=== PATIENT | female | born 2005 | race Caucasian/White ===

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

== ENCOUNTER 2025-02-02 10:06 | Emergency (ER) | payer OTHER, SELFPAY ==
[2025-02-02] VITALS (18 sets, daily range): BP systolic 119–125; BP diastolic 68–70; PULSE 79–107; RESP 16–18; TEMP 36.9; O2SAT 92–100; BMI 36.8
--- OUTSIDE RECORDS SUMMARY | 2025-02-02 10:09 | XMS_ITS | Clinical Summary ---
Author Organization [facility] Address [address] [place] [id number] Care Team Providers Care Dope And Fabric Worker Name Role Phone Teagan Ocampo MD Primary Care Provider Allergies Active Allergy Reactions Criticality Noted Date Comments Amoxicillin Rash 11/02/2007 Guaifenesin Hives,Edema 12/14/2016 Medications pediatric multivit comb no.101 chew 2 gummies PO daily. 0 6 Active albuterol (PROVENTIL) 0.083 % neb solutionIndica tions:Bronchit is Inhale 3 mL via a nebulizer every 4 hours if needed. 1 box 0 6 Active LORazepam (ATIVAN) 1 mg tablet Take 1 mg by mouth once daily if needed. 0 7 Active acetaminophen (TYLENOL EXTRA STRENGTH) 500 mg tablet Take 500 mg by mouth every 6 hours if needed (as needed and prior to remicade infusion). Max acetaminophen dose: 4000mg in 24 hrs. Active levocetirizine (XYZAL) 5 mg tab tablet Take 5 mg by mouth once daily if needed for Rhinitis. Active Active Problems Problem Noted Date Diagnosed Date Crohn's disease with complication 07/01/2017 Viral warts 06/16/2017 Crohn disease 01/18/2017 Iron deficiency anemia, unspecified 12/17/2016 Overview (12/22/2016): Hgb 7.8 referred to pediatric GI- having upper and lower endoscopies on 01/04/17 Vaccination not carried out because of patient kiesha morse 03/13/2007 Immunizations Immunization Administration Dates Next Due DTaP 2005,2005,2005 HIB-HepB (Comvax) 2005,2005 Inactivated Polio Vaccine 2005,2005, 2005 Pneumococcal conj 7-Valent (Prevnar 7) 6,2005,2005 Family History Medical History Relation Name Comments Good Health Father Diabetes Maternal Grandfather Type 1 Lupus Maternal Grandfather Lupus A nticoagulant Cancer-breast Maternal Grandmother Diabetes Maternal Grandmother Type 2 Rheum arthritis Maternal Grandmother Asthma Mother Thyroid Disease Paternal Grandmother Allergies Sister Valerie Asthma Sister Valerie Urticaria Sister Valerie from the cold Relation Name Status Comments Father Alive Maternal Grandfather Alive Maternal Grandmother Alive Mother Alive Paternal Grandfather Alive Paternal Grandmother Alive Sister Valerie Alive Social History Tobacco Use Types Packs/Day Years Used Date Smoking Tobacco: Never Smokeless Tobacco: Never Alcohol Use Standard Drinks/Week Comments Not Asked 0 (1 standard drink = 0.6 oz pur e alcohol) Comments No Sex and Gender Information Value Date Recorded Sex Assigned at Not on file 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 Gender Identity Not on file Sexual Orientation Not on file Occupation Industry Job Start Date Job End Date Student Not on file Not on file Not on file Obstetrics History Last Filed Vital Signs Vital Sign Reading Time Taken Comments Blood Pressure 122/59 07/29/2023 12:54 PM CDT Pulse 84 07/29/2023 12:54 PM CDT Temperature 36.8 C (98.3 F) 07/01/2023 9:35 AM CDT Respiratory Rate 18 07/29/2023 12:54 PM CDT Oxygen Saturation 98% 07/29/2023 12:54 PM CDT Inhaled Oxygen Concentration - - Weight 89.1 kg (196 lb 8 oz) 07/01/2023 9:35 AM CDT Height 153 cm (5' 0.24) 03/14/2020 9:45 AM CDT Head Circumference 47.5 cm 03/13/2007 9:00 AM CDT Head Circumference Percentile 69.20% 03/13/2007 9:00 AM CDT Growth Chart: WHO (Girls, 0- 2 years) Body Mass Index - - Plan of Treatment Health Maintenance Due Date Last Done Comments Well Child Check for age 3-20 04/30/2008 03/13/2007 Depression screening for age 12+ 2017 HIV for age 15-65 2020 BMI (ht and wt on same day) for age 18+ 2023 Hepatitis C screening for ag e 18-79 2023 COVID-19 vaccine series (2023- season) 2024 07/22/2021, 07/01/2021 Pneumococcal series for age 6-49 Aged Out 2005, 2005, 2005 No longer eligible based on patient's age to complete this topic Insurance [facility] Care Teams Dope And Fabric Worker Relationship Specialty Start Date End Date Teagan Ocampo MD [address] [facility] [place] [address] PCP - General Pediatric 12/02/21
--- OUTSIDE RECORDS SUMMARY | 2025-02-02 10:50 | XMS_ITS | Clinical Summary ---
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
--- NOTE | 2025-02-02 10:52 | ED.GENADULT ---
HPI - General Adult General Date Seen: 02/02/25 Chief complaint: Abdominal Pain Stated complaint: sharp pelvic pain Time Seen by Provider: 02/02/25 10:22 Source: patient Mode of arrival: ambulatory Limitations: no limitations History of Present Illness HPI narrative: Patient is an 18-year-old female with left pelvic/left lower quadrant abdominal pain. She states the pain seemed to start last night around 21:30. States initially was dull but will have episodes of acute sharp pain. States right now the pain seems to be tolerated nature. Does get worse with movement. She states the pain started suddenly. Denies having pain like this before. It has been told previously she has a 5 cm left adnexal cyst. Has never been diagnosed with ovarian torsion before. Denies nausea or vomiting. Has not noticed any vaginal bleeding or discharge. Denies any chance of . Does have a history of Crohn's disease and usually that pain is more in her mid to upper abdomen. She has never had Crohn's disease pain here before. Her Crohn's disease mostly affects her terminal ileum. Denies any other concerns. Related Data Home Medications ?Medication ?Instructions ?Recorded ?Confirmed acetaminophen 325 mg capsule 325 mg PO Q6H PRN 09/22/23 01/10/25 (Tylenol) cetirizine 10 mg capsule (All Day 10 mg PO DAILY PRN 09/22/23 01/10/25 Allergy (cetirizine)) diphenhydramine HCl 25 mg capsule 25 mg PO Q8H PRN 09/22/23 01/10/25 (Benadryl) mometasone 0.1 % topical cream 1 applic topical DAILY 09/22/23 01/10/25 multivit with min-folic acid 1 tab PO DAILY 09/22/23 01/10/25 triamcinolone acetonide 0.025 % 1 applic topical DAILY 09/22/23 01/10/25 lotion Allergies Allergy/AdvReac Type Severity Reaction Status Date / Time amoxicillin Allergy Unknown Verified 02/02/25 13:50 guaifenesin (From Robitussin) Allergy Unknown Verified 02/02/25 13:50 Review of Systems Status of ROS: Reports: 10 or more systems reviewed and unremarkable except as noted in History and below Exam Narrative: Exam Narrative: Const: Well-nourished, Well-developed, in mild distress Eyes: PERRL, no conjunctival injection, and symmetrical lids HENT: Atraumatic external nose and ears. Moist mucous membranes. Neck: Symmetric, trachea midline, No thyromegaly. CVS: RRR, No murmurs or gallops. Peripheral pulses 2+ and equal in all extremities RESP: Unlabored respiratory effort. Clear to auscultation bilaterally. GI: Mild pelvic given left lower quadrant tenderness, Nondistended, No rebound or guarding. MSK:Extremities w/o deformity, Normal Active ROM Skin: Warm, Dry. No rashes or lesions. Neuro: Normal Muscle tone, No focal neurological deficits. Psych: Awake, Alert, & Oriented x3. Appropriate mood and affect. Const: Vital Signs, click to edit/add: Vital Signs - 24 hr 02/02/25 10:19 02/02/25 11:23 02/02/25 11:30 Temperature 98.4 F Pulse Rate 82 91 Pulse Rate [Pulse Oximeter] 80 Respiratory Rate 18 18 Blood Pressure Blood Pressure [Ri ght Upper Arm] 125/68 Pulse Oximetry [address] thod Room Air 02/02/25 12:07 02/02/25 12:15 02/02/25 12:30 Temperature Pulse Rate 81 79 101 H Pulse Rate [Pulse Oximeter] Respiratory Rate 16 Blood Pressure Blood Pressure [Ri ght Upper Arm] Pulse Oximetry [address] thod 02/02/25 12:49 02/02/25 13:06 02/02/25 13:15 Temperature Pulse Rate 88 90 90 Pulse Rate [Pulse Oximeter] Respiratory Rate Blood Pressure Blood Pressure [Ri ght Upper Arm] Pulse Oximetry [address] thod 02/02/25 13:30 02/02/25 13:45 02/02/25 14:00 Temperature Pulse Rate 83 86 93 Pulse Rate [Pulse Oximeter] Respiratory Rate Blood Pressure Blood Pressure [Ri ght Upper Arm] Pulse Oximetry 95 98 96 Oxygen Delivery Me thod 02/02/25 14:15 02/02/25 14:30 02/02/25 14:45 Temperature Pulse Rate 93 107 H 98 Pulse Rate [Pulse Oximeter] Respiratory Rate Blood Pressure Blood Pressure [Ri ght Upper Arm] Pulse Oximetry 96 [address] thod 02/02/25 15:00 02/02/25 15:01 02/02/25 15:15 Temperature Pulse Rate 98 100 Pulse Rate [Pulse Oximeter] Respiratory Rate Blood Pressure 119/70 Blood Pressure [Ri ght Upper Arm] Pulse Oximetry 98 97 99 Oxygen Delivery Me thod Course Vital Signs Vital signs: Initial Vital Signs Temperature 98.4 F 02/02/25 10:19 Temperature Source Temporal Artery Scan 02/02/25 10:19 Pulse Rate 80 02/02/25 10:19 Respiratory Rate 18 02/02/25 10:19 Blood Pressure 125/68 02/02/25 10:19 Blood Pressure Mean 87 02/02/25 10:19 Pulse Oximetry 100 02/02/25 10:19 Oxygen Delivery Method Room Air 02/02/25 10:19 Vital Signs Temperature 98.4 F 02/02/25 10:19 Pulse Rate 80 02/02/25 10:19 Respiratory Rate 18 02/02/25 10:19 Blood Pressure 125/68 02/02/25 10:19 Pulse Oximetry 100 02/02/25 10:19 Oxygen Delivery Method Room Air 02/02/25 10:19 Temperature 98.4 F 02/02/25 10:19 Pulse Rate 100 02/02/25 15:15 Respiratory Rate 16 02/02/25 12:30 Blood Pressure 119/70 02/02/25 15:00 Pulse Oximetry 99 02/02/25 15:15 Oxygen Delivery Method Room Air 02/02/25 10:19 Medications Administered Medications: Discontinued Medications Generic Name Dose Route Start Last Admin Trade Name Freq PRN Reason Stop Dose Admin Morphine Sulfate 4 mg 02/02/25 10:36 02/02/25 11:12 Morphine 4 Mg/Ml Inj IVP 02/02/25 10:37 4 mg ONCE ONE Administration Morphine Sulfate 4 mg 02/02/25 15:42 02/02/25 15:54 Morphine 4 Mg/Ml Inj IVP 02/02/25 15:43 4 mg ONCE ONE Administration Medical Decision Making [facility] Narrative Medical decision making narrative: Patient is an 18-year-old female presenting for abdominal and pelvic pain. Based on her history and description I am concerned about ovarian torsion. There is a possibility she is having intermittent torsion. There is also some concern for Crohn's disease but seems less likely at this time. Due to there is possibility of surgery will order CBC, BMP, test. Will also order morphine for pain. Pelvic ultrasound ordered. Will hold off on any further imaging at this time. Lab work returned with a white count of 18.99. She does not take any steroids other than a topical steroid she used yesterday for her psoriasis. Ultrasound was done showing a large right ovarian cyst and no issue seen on the left. I informed her of this finding and after evaluation she does note she has seemingly more pain on the right side now. With his elevated white count and her history I do believe it is important do a CT scan. CT scan reviewed by myself and the radiologist shows significant terminal ileitis compatible with an acute Crohn's flare along with signs concerning for acute appendicitis. This also multiple small collections in the right lower quadrant that contains air and fluid as concerning for bowel perforation and/or perforated appendicitis with periappendiceal abscesses. With this extensive issues I did speak to our on-call surgeon, Dr. Lorenzo, she states likely treatment would be with antibiotics and possibly steroids to treat everything in the patient may eventually need IR drainage. She did speak to our on-call hospitalist who does not feel comfortable keeping the patient in the hospital with all these issues so we will work on transferring the patient. She does see a GI specialist through the [facility] which is through the [facility] and would like transfer to [address] [facility] accepted her to [place] emergency department direct transfer. Patient started on meropenem. She does have an allergy to amoxicillin when she was young. She states he was a rash. I do believe she is safe to get the meropenem. She will be transferred at this time. Lab Data Labs: Lab Results 02/02/25 02/02/25 Range/Units 11:00 12:43 WBC 18.99 H (4.50-11.00) K/uL RBC 5.15 (4.00-5.20) m/uL Hgb 11.7 L (12.0-16.0) gm/dL Hct 36.9 (33.0-51.0) % MCV 72 L (80-100) fL MCH 23 L (26-34) pg MCHC 32 (32-36) gm/dL RDW Coeff of Alexa 14.4 (11.5-15.5) % Plt Count 492 H (140-440) K/uL Neut % (Auto) 69.7 (42.0-72.0) % Lymph % (Auto) 17.3 L (20-44) % [place] % (Auto) 10.8 (0.0-11.0) % Eos % (Auto) 1.8 (0.0-7.0) % Baso % (Auto) 0.2 (0.0-3.0) % Neut # (Auto) 13.20 H (1.7-7.0) K/uL Lymph # (Auto) 3.30 H (0.90-2.90) K/uL [place] # (Auto) 2.10 H (0.00-0.90) K/UL Eos # (Auto) 0.30 (0.00-0.50) K/uL Baso # (Auto) 0.00 (0.00-0.30) K/uL Abs Immat Gran (auto) 0.00 (0.00-0.30) K/uL Imm/Tot Granulo (auto) 0.2 % Sodium 138 (135-149) mmol/L Potassium 3.8 (3.6-5.1) mmol/L Chloride 102 (96-114) mmol/L Carbon Dioxide 27 (20-32) mmol/L Anion Gap 9 (7-15) mEq/L BUN 6 (5-24) mg/dL Creatinine 0.6 (0.6-1.2) mg/dL Estimated Creat Clear 113.80 Estimated GFR 133 ml/min Glucose 92 (60-115) mg/dL Calcium 8.7 (8.7-10.8) mg/dL HCG, Qual Negative (Negative) Urine Color Yellow (Yellow) Urine Appearance Clear (Clear) Urine pH 7.0 (5.0-8.5) Ur Specific [place] 1.015 (1.000-1.030) Urine Protein Negative (Negative) Urine Glucose (UA) Negative (Negative) Urine Ketones Negative (Negative) Urine Blood Negative (Negative) Urine Nitrite Negative (Negative) Urine Bilirubin Negative (Negative) Urine Urobilinogen 0.2 (0.2-1.0) Ur Leukocyte Esterase Negative (Negative) Urine RBC 0-2 (0-2) Urine WBC 0-2 (0-5) Ur Squamous Epith Cells Few (None-Few) Urine Bacteria None (None) Imaging Data CT scan abdomen and pelvis: Attestation: I have reviewed the pertinent imaging results. Radiologist's impression: 1. Significant terminal ileitis, compatible with acute Crohn`s flare. 2. Additional tubular blind ending loop of bowel extending from the cecum shows significant wall thickening and adjacent inflammation, worrisome for acute appendicitis. Multiple adjacent small collections in the right lower quadrant containing air and fluid, concerning for bowel perforation/perforated appendicitis, with periappendiceal abscesses. 3. Dominant follicle/cyst in the right ovary measuring up to 6.2 cm, better assessed on prior ultrasound. 4. 0.8 cm pulmonary nodule in the right lower lobe. Recommend comparison with prior studies if available to assess for interval change, otherwise recommend follow-up CT chest in 6 months. Please note that all CT scans at this facility use dose modulation, iterative reconstruction, and/or weight-based dosing when appropriate to reduce radiation dose to as low as reasonably achievable. Dictated by Christi Nunez MD @ 02/02/2025 2:24:15 PM ----- ADDENDUM ----- Case discussed with Dr. Navarrete at 14:28 on 02/02/2025. Dictated by Christi Nunez MD @ Feb 02 2025 3:04PM Discharge Plan Discharge Clinical Impression: Crohn's disease Qualifiers: Gastrointestinal tract location: unspecified location Digestive disease complication type: unspecified complication Qualified Code(s): K50.919 - Crohn's disease, unspecified, with unspecified complications Acute appendicitis Qualifiers: Acute appendicitis type: with localized peritonitis Appendicitis gangrene presence: unspecified whether gangrene present Appendicitis perforation presence: unspecified whether perforation present Appendicitis abscess presence: with abscess Qualified Code(s): K35.33 - Acute appendicitis with perforation, localized peritonitis, and gangrene, with abscess Patient Disposition: Xfer [place] Condition: Stable Prescriptions: No Action multivit with min-folic acid [Women's Multivitamin Gummies] 1 tab PO DAILY acetaminophen [Tylenol] 325 mg capsule 325 mg PO Q6H PRN mometasone 0.1 % cream 1 applic topical DAILY triamcinolone acetonide 0.025 % lotion 1 applic topical DAILY diphenhydramine HCl [Benadryl] 25 mg capsule 25 mg PO Q8H PRN All Day Allergy (cetirizine) 10 mg capsule 10 mg PO DAILY PRN Follow Up/Referrals: Awilda Dick APRN [Primary Care Provider] - Stand Alone [facility] Inst[facility]
[2025-02-02] MEDS: MORPHINE 4 MG/ML INJ IVP ×2 (11:12→15:54)
[2025-02-02 11:18] LABS: Basophils Percent Auto 0.2 % (0.0-3.0); Eosinophils Percent Auto 1.8 % (0.0-7.0); Hematocrit 36.9 % (33.0-51.0); Hemoglobin* 11.7 gm/dL (12.0-16.0); Immature Granulocytes Pct Auto 0.2 %; Lymphocytes Percent Auto 17.3 % (20-44); Mean Corpuscular HGB Conc 32 gm/dL (32-36); Mean Corpuscular Hemoglobin 23 pg (26-34); Mean Corpuscular Volume 72 fL (80-100); Monocytes Percent Auto 10.8 % (0.0-11.0); Neutrophils Percent Auto 69.7 % (42.0-72.0); Platelet Count* 492 K/uL (140-440); RDW Coefficient of Variation % 14.4 % (11.5-15.5); Red Blood Count 5.15 m/uL (4.00-5.20); White Blood Count* 18.99 K/uL (4.50-11.00)
[2025-02-02 11:24] LABS: Slide Review Reflex No
[2025-02-02 11:32] LABS: Chloride* 102 mmol/L (96-114); Potassium* 3.8 mmol/L (3.6-5.1); Sodium* 138 mmol/L (135-149)
[2025-02-02 11:35] LABS: Anion Gap 9 mEq/L (7-15); Blood Urea Nitrogen* 6 mg/dL (5-24); Calcium* 8.7 mg/dL (8.7-10.8); Carbon Dioxide* 27 mmol/L (20-32); Creatinine* 0.6 mg/dL (0.6-1.2); Estimated Glomerular Filt Rate 133 ml/min; Glucose* 92 mg/dL (60-115)
[2025-02-02 12:01] LABS: HCG Qualitative Serum* Negative (Negative)
[2025-02-02 12:55] LABS: Appearance Urine Clear (Clear); Bilirubin Urine Negative (Negative); Blood Urine Negative (Negative); Color Urine Yellow (Yellow); Glucose Urine Negative (Negative); Ketones Urine Negative (Negative); Leukocyte Esterase Urine Negative (Negative); Nitrite Urine Negative (Negative); Protein Urine Negative (Negative); Specific Gravity Urine 1.015 (1.000-1.030); Urobilinogen Urine 0.2 (0.2-1.0)
[2025-02-02 13:05] LABS: RBC Urine 0-2 (0-2); Squamous Epithelial Cell Urine Few (None-Few); WBC Urine 0-2 (0-5)
[2025-02-02] MEDS: 0.9 % SODIUM CHLORIDE 1000 ml 1,000 ML IV (16:16)
[2025-02-02] MEDS: MEROPENEM 1 GM in 0.9 % SODIUM CHLORIDE Mini-bag 100 ML IVPB (16:29)
== END 2025-02-02 17:28 | disposition short-term general hospital (02) ==
PROVIDERS: Emergency Provider Student in an Organized Health Care Education/Training Program; PCP Clinical Nurse Specialist
DX: K50.919 Crohn's disease, unspecified, with unspecified complications (principal); K35.33 Acute appendicitis with perforation, localized peritonitis, and gangrene, with abscess
CPT/HCPCS: 36415; 74177; 76856; 80048; 81001; 84703; 85025; 93976; 94761; 96365; 96375; 96376; 99284; 99285; J2185; J2270; J7030; Q9967

== ENCOUNTER 2025-02-14 11:00 | Outpatient (RCR) | payer OTHER, SELFPAY ==
[2024-09-20 11:21] VITALS: BP 120/81; PULSE 74; RESP 16; TEMP 36.8; O2SAT 98
[2024-09-20] MEDS: SODIUM CHLORIDE 0.9 % (FLUSH) 10 ML SYRINGE IVF (12:00)
[2024-09-20 14:19] LABS: Basophils Percent Auto 0.3 % (0.0-3.0); Eosinophils Percent Auto 3.4 % (0.0-7.0); Hematocrit 37.7 % (33.0-51.0); Immature Granulocytes Pct Auto 0.1 %; Lymphocytes Percent Auto 31.7 % (20-44); Mean Corpuscular HGB Conc 32 gm/dL (32-36); Mean Corpuscular Hemoglobin 24 pg (26-34); Mean Corpuscular Volume 75 fL (80-100); Monocytes Percent Auto 8.6 % (0.0-11.0); Neutrophils Percent Auto 55.9 % (42.0-72.0); Platelet Count* 424 K/uL (140-440); RDW Coefficient of Variation % 14.5 % (11.5-15.5); Red Blood Count 5.04 m/uL (4.00-5.20); White Blood Count* 11.11 K/uL (4.50-11.00)
[2024-09-20 14:22] LABS: Slide Review Reflex No
[2024-09-20 14:47] LABS: Albumin* 4.1 g/dL (3.3-5.0); Chloride* 104 mmol/L (96-114); Sodium* 137 mmol/L (135-149)
[2024-09-20 14:48] LABS: Potassium* 3.5 mmol/L (3.6-5.1)
[2024-09-20 14:50] LABS: Alanine Aminotransferase* 21 U/L (4-35); Alkaline Phosphatase* 70 U/L (40-150); Anion Gap 8 mEq/L (7-15); Aspartate Amino Transferase* 29 U/L (12-35); Bilirubin Total* 0.3 mg/dL (0.1-1.5); Blood Urea Nitrogen* 6 mg/dL (5-24); Carbon Dioxide* 25 mmol/L (20-32); Creatinine* 0.6 mg/dL (0.6-1.2); Estimated Glomerular Filt Rate 133 ml/min; Glucose* 90 mg/dL (60-115); Total Protein* 7.8 g/dL (6.0-8.3)
[2024-09-20 14:51] LABS: Calcium* 8.9 mg/dL (8.7-10.8)
[2024-10-18 11:04] VITALS: BP 117/71; PULSE 61; RESP 16; TEMP 36.3; O2SAT 96
[2024-10-18 11:21] LABS: Basophils Absolute Auto 0.04 K/uL (0.00-0.30); Basophils Percent Auto 0.5 % (0.0-3.0); Eosinophils Absolute Auto 0.23 K/uL (0.00-0.50); Eosinophils Percent Auto 2.6 % (0.0-7.0); Hematocrit 39.3 % (33.0-51.0); Hemoglobin* 12.4 gm/dL (12.0-16.0); Immature Granulocytes Abs Auto 0.01 K/uL (0.00-0.30); Immature Granulocytes Pct Auto 0.1 %; Lymphocytes Absolute Auto 3.42 K/uL (0.90-2.90); Lymphocytes Percent Auto 39.3 % (20-44); Mean Corpuscular HGB Conc 32 gm/dL (32-36); Mean Corpuscular Hemoglobin 23 pg (26-34); Mean Corpuscular Volume 73 fL (80-100); Monocytes Percent Auto 7.8 % (0.0-11.0); Neutrophils Absolute Auto 4.33 K/uL (1.7-7.0); Neutrophils Percent Auto 49.7 % (42.0-72.0); Platelet Count* 407 K/uL (140-440); RDW Coefficient of Variation % 14.4 % (11.5-15.5); Red Blood Count 5.41 m/uL (4.00-5.20); White Blood Count* 8.71 K/uL (4.50-11.00)
[2024-10-18 11:26] LABS: Slide Review Reflex No
[2024-10-18 11:36] LABS: Albumin* 4.1 g/dL (3.3-5.0); Chloride* 105 mmol/L (96-114)
[2024-10-18 11:37] LABS: Sodium* 135 mmol/L (135-149)
[2024-10-18 11:39] LABS: Alkaline Phosphatase* 81 U/L (40-150); Anion Gap 4 mEq/L (7-15); Aspartate Amino Transferase* 27 U/L (12-35); Bilirubin Total* 0.2 mg/dL (0.1-1.5); Blood Urea Nitrogen* 8 mg/dL (5-24); Carbon Dioxide* 26 mmol/L (20-32); Creatinine* 0.5 mg/dL (0.6-1.2); Estimated Glomerular Filt Rate 138 ml/min; Total Protein* 7.8 g/dL (6.0-8.3)
[2024-10-18 11:40] LABS: Alanine Aminotransferase* 23 U/L (4-35); Glucose* 95 mg/dL (60-115)
[2024-10-18] MEDS: SODIUM CHLORIDE 0.9 % (FLUSH) 10 ML SYRINGE IVF (14:07)
[2024-11-15 11:35] VITALS: BP 121/75; PULSE 71; RESP 16; TEMP 36.8; O2SAT 98
[2024-11-15 12:08] LABS: Basophils Absolute Auto 0.03 K/uL (0.00-0.30); Basophils Percent Auto 0.3 % (0.0-3.0); Eosinophils Absolute Auto 0.45 K/uL (0.00-0.50); Eosinophils Percent Auto 5.2 % (0.0-7.0); Hematocrit 37.9 % (33.0-51.0); Lymphocytes Absolute Auto 3.09 K/uL (0.90-2.90); Lymphocytes Percent Auto 35.4 % (20-44); Mean Corpuscular HGB Conc 32 gm/dL (32-36); Mean Corpuscular Hemoglobin 23 pg (26-34); Mean Corpuscular Volume 73 fL (80-100); Monocytes Percent Auto 8.6 % (0.0-11.0); Neutrophils Absolute Auto 4.41 K/uL (1.7-7.0); Neutrophils Percent Auto 50.5 % (42.0-72.0); Platelet Count* 400 K/uL (140-440); RDW Coefficient of Variation % 14.8 % (11.5-15.5); White Blood Count* 8.73 K/uL (4.50-11.00)
[2024-11-15 12:11] LABS: Slide Review Reflex No
[2024-11-15] MEDS: SODIUM CHLORIDE 0.9 % (FLUSH) 10 ML SYRINGE IVF (12:16)
[2024-11-15] MEDS: CETIRIZINE HCL 10 MG TABLET PO (12:16)
[2024-11-15 12:28] LABS: Albumin* 3.8 g/dL (3.3-5.0); Chloride* 107 mmol/L (96-114)
[2024-11-15 12:29] LABS: Potassium* 3.8 mmol/L (3.6-5.1); Sodium* 139 mmol/L (135-149)
[2024-11-15 12:31] LABS: Anion Gap 8 mEq/L (7-15); Aspartate Amino Transferase* 21 U/L (12-35); Bilirubin Total* 0.2 mg/dL (0.1-1.5); Carbon Dioxide* 24 mmol/L (20-32); Creatinine* 0.5 mg/dL (0.6-1.2); Estimated Glomerular Filt Rate 138 ml/min
[2024-11-15 12:32] LABS: Alanine Aminotransferase* 19 U/L (4-35); Alkaline Phosphatase* 69 U/L (40-150); Blood Urea Nitrogen* 8 mg/dL (5-24); Calcium* 8.9 mg/dL (8.7-10.8); Glucose* 116 mg/dL (60-115); Total Protein* 7.2 g/dL (6.0-8.3)
--- NOTE | 2024-11-15 13:32 | ONC.NURNOTE ---
Faxed lab orders to Dr. Maria De Jesus Smyth. Quantiferon pending. Requested them to send us their clinic notes from tomorrows appointment and to revise current pre-med orders.
[2024-11-17 13:54] LABS: QuantiFERON Mitogen minus NIL 9.78 IU/mL; QuantiFERON NIL 0.22 IU/mL; Quantiferon Plus TB1 minus NIL 0.06 IU/mL (<=0.34); Quantiferon Plus TB2 minus NIL 0.07 IU/mL (<=0.34); Quantiferon TB Gold Plus Negative (Negative)
[2024-12-13 11:41] VITALS: BP 103/68; PULSE 69; RESP 16; TEMP 36.4; O2SAT 97
[2024-12-13 12:00] LABS: Basophils Absolute Auto 0.05 K/uL (0.00-0.30); Basophils Percent Auto 0.5 % (0.0-3.0); Eosinophils Absolute Auto 0.29 K/uL (0.00-0.50); Eosinophils Percent Auto 2.8 % (0.0-7.0); Hematocrit 38.2 % (33.0-51.0); Hemoglobin* 12.2 gm/dL (12.0-16.0); Immature Granulocytes Abs Auto 0.01 K/uL (0.00-0.30); Immature Granulocytes Pct Auto 0.1 %; Lymphocytes Absolute Auto 3.28 K/uL (0.90-2.90); Lymphocytes Percent Auto 32.2 % (20-44); Mean Corpuscular HGB Conc 32 gm/dL (32-36); Mean Corpuscular Hemoglobin 23 pg (26-34); Mean Corpuscular Volume 73 fL (80-100); Monocytes Percent Auto 7.6 % (0.0-11.0); Neutrophils Absolute Auto 5.79 K/uL (1.7-7.0); Neutrophils Percent Auto 56.8 % (42.0-72.0); Platelet Count* 429 K/uL (140-440); RDW Coefficient of Variation % 15.3 % (11.5-15.5); Red Blood Count 5.24 m/uL (4.00-5.20)
[2024-12-13 12:07] LABS: Slide Review Reflex No
[2024-12-13 12:13] LABS: Albumin* 3.9 g/dL (3.3-5.0); Chloride* 105 mmol/L (96-114); Sodium* 138 mmol/L (135-149)
[2024-12-13 12:14] LABS: Potassium* 3.8 mmol/L (3.6-5.1)
[2024-12-13 12:16] LABS: Alanine Aminotransferase* 20 U/L (4-35); Alkaline Phosphatase* 75 U/L (40-150); Anion Gap 6 mEq/L (7-15); Aspartate Amino Transferase* 22 U/L (12-35); Bilirubin Total* 0.3 mg/dL (0.1-1.5); Blood Urea Nitrogen* 8 mg/dL (5-24); Carbon Dioxide* 27 mmol/L (20-32); Creatinine* 0.6 mg/dL (0.6-1.2); Estimated Glomerular Filt Rate 133 ml/min; Glucose* 92 mg/dL (60-115); Total Protein* 7.4 g/dL (6.0-8.3)
[2024-12-13 12:17] LABS: Calcium* 8.7 mg/dL (8.7-10.8)
[2024-12-13] MEDS: SODIUM CHLORIDE 0.9 % (FLUSH) 10 ML SYRINGE IVF (12:25)
[2025-01-10 10:19] VITALS: BP 109/74; PULSE 80; RESP 16; TEMP 36.4; O2SAT 98
[2025-01-10 10:28] LABS: Basophils Absolute Auto 0.02 K/uL (0.00-0.30); Basophils Percent Auto 0.3 % (0.0-3.0); Eosinophils Absolute Auto 0.22 K/uL (0.00-0.50); Eosinophils Percent Auto 3.4 % (0.0-7.0); Hematocrit 37.6 % (33.0-51.0); Hemoglobin* 11.8 gm/dL (12.0-16.0); Lymphocytes Percent Auto 49.4 % (20-44); Mean Corpuscular HGB Conc 31 gm/dL (32-36); Mean Corpuscular Hemoglobin 23 pg (26-34); Mean Corpuscular Volume 72 fL (80-100); Monocytes Percent Auto 10.2 % (0.0-11.0); Neutrophils Percent Auto 36.7 % (42.0-72.0); Platelet Count* 370 K/uL (140-440); RDW Coefficient of Variation % 15.3 % (11.5-15.5); Red Blood Count 5.22 m/uL (4.00-5.20)
[2025-01-10 10:38] LABS: Slide Review Reflex No
[2025-01-10 10:40] LABS: Chloride* 104 mmol/L (96-114)
[2025-01-10 10:41] LABS: Potassium* 3.3 mmol/L (3.6-5.1); Sodium* 139 mmol/L (135-149)
[2025-01-10 10:43] LABS: Anion Gap 10 mEq/L (7-15); Aspartate Amino Transferase* 26 U/L (12-35); Carbon Dioxide* 25 mmol/L (20-32); Creatinine* 0.5 mg/dL (0.6-1.2); Estimated Glomerular Filt Rate 138 ml/min
[2025-01-10 10:44] LABS: Alanine Aminotransferase* 18 U/L (4-35); Alkaline Phosphatase* 61 U/L (40-150); Bilirubin Total* 0.3 mg/dL (0.1-1.5); Blood Urea Nitrogen* 7 mg/dL (5-24); Calcium* 8.3 mg/dL (8.7-10.8); Glucose* 106 mg/dL (60-115); Total Protein* 7.3 g/dL (6.0-8.3)
[2025-01-10] MEDS: SODIUM CHLORIDE 0.9 % (FLUSH) 10 ML SYRINGE IVF (10:58)
--- NOTE | 2025-02-05 15:42 | ONC.NURNOTE ---
Received notice that patient was seen in ER on 02/02 for abdominal pain. Patient was transferred to [place]. Patient scheduled for next Infliximab infusion on 02/07. RN called patient to check in, patient's mom answered the phone. Dulce is still inpatient at [facility] in [place] but plan is to DC today or tomorrow. 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 Her mom reports that GI thinks she should have her infusion on but ID is wavering on it. RN advised mom that we will need a written order from an MD stating it is ok for Dulce to have her infusion on . Her mom said she would talk more with the MD's and update us. RN offered to call and check in on Tuesday afternoon.RN will call Tuesday. Awilda Dick APRN updated.
--- NOTE | 2025-02-06 15:18 | ONC.NURNOTE ---
RN called patient to check in. Dulce states she is still inpatient at [facility] in [facility], plan is to have a PICC line placed tomorrow and do home on IV ABX. At this time HAILEY wants to hold on her Infliximab infusions while she is healing. She mentioned a possibility of changing medications. Dulce would like to do her IV ABX at the [facility] if possible. RN gave her the fax number for [facility] to send us orders. Awilda Pal APRN and Pharmacy updated.
[2025-02-14 11:09] VITALS: BP 116/78; PULSE 80; RESP 16; TEMP 36.7; O2SAT 99
--- NOTE | 2025-02-14 16:23 | ONC.NURNOTE ---
Pt here for labs and PICC drsg change. WBC came back 20.8. Paving Machine Operator faxed labs to [facility] monitoring program and left a message with lab results.
== END 2025-03-19 23:59 | disposition home or self-care (01) ==
LOC: CCIC 11:00
PROVIDERS: PCP Clinical Nurse Specialist; Visit Provider Clinical Nurse Specialist
DX: K50.90 Crohn's disease, unspecified, without complications (principal); Z79.2 Long term (current) use of antibiotics
CPT/HCPCS: 36415; 36592; 80053; 85025; 86480; 96413; 96415; 96417; 99211; Q5103; A4221; A9270; J7050